=== PATIENT | female | born 1945 | race Caucasian/White ===

== ENCOUNTER 2024-05-13 03:02 | Emergency (ER) | payer OTHER ==
[~2024-05-13] VITALS: Ht 165.1 cm; Wt 68.0 kg
[2024-05-13 03:14] VITALS: BP_SYST 145; PULSE 99; RESP 18; TEMP 101.1; O2SAT 97
[2024-05-13] MEDS: NS 1000 ML IV.SOLN IV ONE (04:39)
[2024-05-13] MEDS: ACETAMINOPHEN 500 MG TABLET PO ONE (04:40)
[2024-05-13 05:02] LABS: BASOPHILS % (AUTO) 0.4 % (0.0-2.0); EOSINOPHILS # (AUTO) 0.1 K/uL (0.0-0.4); EOSINOPHILS % (AUTO) 1.2 % (0.0-4.0); HEMOGLOBIN 9.9 g/dL (12.0-16.0); LYMPHOCYTES # (AUTO) 0.8 K/uL (1.0-5.5); MEAN CORPUSCULAR HEMOGLOBIN 28 pg (27-31); MEAN CORPUSCULAR HGB CONC 33 % (32-36); MEAN CORPUSCULAR VOLUME 86 fL (79.0-98.0); NEUTROPHILS # (AUTO) 7.9 K/uL (1.8-7.7); NEUTROPHILS % (AUTO) 80.4 % (40.0-70.0); PLATELET COUNT (AUTO) 325 K/uL (130-430); RED BLOOD CELL COUNT(AUTO) 3.49 MIL/uL (4.2-6.2); RED CELL DISTRIBUTION WIDTH 13.3 % (9.0-15.0); WHITE BLOOD COUNT (AUTO) 9.8 K/uL (4.8-10.8)
[2024-05-13 05:18] LABS: PROTHROMBIN TIME 9.9 SECS (9.5-12.5)
[2024-05-13 05:22] LABS: ALANINE AMINOTRANSFERASE 23 U/L (12-78); ALBUMIN 2.8 g/dL (3.4-4.8); ANION GAP 5 (5-15); ASPARTATE AMINOTRANSFERASE 24 U/L (10-37); CALCIUM 8.7 mg/dL (8.4-11.0); CARBON DIOXIDE 29 mmol/L (23-29); CHLORIDE 101 mmol/L (98-107); CREATININE 0.98 mg/dL (0.55-1.30); GLUCOSE 123 mg/dL (74-106); POTASSIUM 4.3 mmol/L (3.5-5.1); SODIUM SERUM 135 mmol/L (136-145); TOTAL BILIRUBIN 0.4 mg/dL (0.0-1.0); TOTAL PROTEIN, SERUM 6.4 g/dL (6.4-8.3); UREA NITROGEN, BLOOD 16 mg/dL (8-21)
[2024-05-13 05:24] LABS: BILIRUBIN,DIRECT 0.1 mg/dL (0.0-0.3)
[2024-05-13] MEDS ORDERED: ACET-2634 PO (06:03)
[2024-05-13 06:07] LABS: INFLUENZA TYPE A Negative (NEGATIVE); INFLUENZA TYPE B NEGATIVE (NEGATIVE)
[2024-05-13 06:46] LABS: BILIRUBIN,URINE NEGATIVE (NEGATIVE); CLARITY/URINE SL CLOUDY (CLEAR); COLOR,URINE YELLOW (YELLOW); GLUCOSE,URINE NEGATIVE (NEGATIVE); KETONES,URINE TRACE (NEGATIVE); LEUKOCYTE ESTERASE ,URINE 2+ (NEGATIVE); NITRITE, URINE POSITIVE (NEGATIVE); PROTEIN URINE TRACE (NEGATIVE); UROBILINOGEN,URINE 0.2 (0.2-1.0)
[2024-05-13 06:47] LABS: BLOOD, URINE TRACE (NEGATIVE)
[2024-05-13 06:53] LABS: BACTERIA,URINE MODERATE /HPF (None Seen); MUCUS,URINE 1+ /LPF (None Seen); WBC,URINE 20-50 /HPF (0-3)
[2024-05-13] MEDS ORDERED: NITR-85 PO (07:05)
[2024-05-13] MEDS ORDERED: cefTRIAXone 1 GM VIAL ONE (07:15)
[2024-05-13] MEDS: cefTRIAXone 1 GM in D5W 50 ML IV ONE (07:18)
[2024-05-13 07:54] VITALS: BP_SYST 113; PULSE 67; RESP 18; TEMP 98.6; O2SAT 97
== END 2024-05-13 07:50 | disposition home or self-care (01) ==
LOC: SED 03:02
DX: N39.0 Urinary tract infection, site not specified (principal); I10 Essential (primary) hypertension; R50.9 Fever, unspecified; J02.9 Acute pharyngitis, unspecified; Z20.822 Contact with and (suspected) exposure to COVID-19
CPT/HCPCS: 99285; 96365; 71045; 96361; 87426; 80076; 80048; 81001; 85025; 85610; 85730; 87040; 87086; 87186; 84484; 36415; 93005; 83605; 87804 ×2; J0696; J7030; 81000; 81015